=== PATIENT | male | born 1980 | race Asian ===

== ENCOUNTER 2018-11-28 12:26 | Emergency (ER) | payer OTHER ==
[~2018-11-28] VITALS: Ht 167.6 cm; Wt 64.4 kg
[2018-11-28 12:33] VITALS: BP 165/95
--- NOTE | 2018-11-28 13:02 | NUR ---
12 LEAD EKG DONE, DR. MAXWELL CHECKED . PT BACK TO LOBBY WITH STABLE CONDITION.
--- NOTE | 2018-11-28 13:28 | NUR ---
38M C/O LEFT SIDE CHEST PAIN AND SOB FOR 1 MONTH. PT STATES HE BIT DOWN ON SOMETHING HARD MORE THAN A MONTH AGO, DENIES INJURY TO TEETH OR DENTAL SURGERY. AFTER THIS, RIGHT EAR DISCOMFORT ("FEELS LIKE SOMETHING IS IN MY EAR") AND JAW DISCOMFORT STARTED. SOON THEREAFTER CP START. IT COMES AND GOES. LENGTH OF EACH EPISODE VARIES. CURRENT CP HAS BEEN GOING ON FOR 5 HOURS. RATED 4/10. STATES SOB WITH CP. LEFT FOREARM AND FINGERS NUMBNESS, NOT RADIATING FROM CHEST. NO N/V/D/FEVER, DIAPHORESIS. HX: APPENDECTOMY
[2018-11-28] MEDS ORDERED: ASPIRIN 81 MG TAB.CHEW PO ONE (13:35)
[2018-11-28] MEDS ORDERED: NACL 0.9% 1,000 ML IV ONE (13:35)
--- NOTE | 2018-11-28 13:49 | NUR ---
RADIOLOGY AT BEDSIDE
[2018-11-28 14:17] LABS: BASOPHILS % (AUTO) 0.3 % (0.0-2.0); EOSINOPHILS # (AUTO) 0.1 K/uL (0-0.4); EOSINOPHILS % (AUTO) 1.1 % (0.0-4.0); HEMATOCRIT 48.5 % (36-52); HEMOGLOBIN 16.4 g/dL (12.0-18.0); LYMPHOCYTES # (AUTO) 2.1 K/uL (2.0-11.5); LYMPHOCYTES % (AUTO) 30.5 % (20.5-51.1); MEAN CORPUSCULAR HEMOGLOBIN 34 pg (27-31); MEAN CORPUSCULAR HGB CONC 34 g/dL (33-37); MEAN CORPUSCULAR VOLUME 100.1 fL (80-94); MONOCYTES # (AUTO) 0.6 K/uL (0.8-1.0); MONOCYTES % (AUTO) 8.4 % (1.7-9.3); NEUTROPHILS # (AUTO) 4.1 K/uL (1.8-7.7); NEUTROPHILS % (AUTO) 59.7 % (42.2-75.2); PLATELET COUNT (AUTO) 250 K/uL (140-450); RED BLOOD CELL COUNT(AUTO) 4.85 MIL/uL (4.20-6.10); RED CELL DISTRIBUTION WIDTH 13.1 % (11.6-13.7); WHITE BLOOD COUNT (AUTO) 6.9 K/uL (4.8-10.8)
[2018-11-28] MEDS ORDERED: KETOROLAC 30 MG/ML VIAL IVP ONE (14:30)
[2018-11-28 14:52] LABS: PROTHROMBIN TIME 10.1 secs (10.8-13.4)
[2018-11-28 15:03] LABS: CARBON DIOXIDE 27.8 mmol/L (21-32); POTASSIUM 3.8 mmol/L (3.5-5.1)
[2018-11-28 15:04] LABS: ALBUMIN 3.6 g/dL (3.4-5.0); CREATININE 0.7 mg/dL (0.7-1.3); TOTAL BILIRUBIN 0.8 mg/dL (0.0-1.0)
--- NOTE | 2018-11-28 15:30 | NUR ---
DR MUNGUIA AT BEDSIDE
[2018-11-28 16:35] VITALS: BP 145/90
--- NOTE | 2018-11-28 16:37 | NUR ---
Patient discharged with v/s stable. Written and verbal after care instructions given and explained. Patient alert, oriented and verbalized understanding of instructions. Ambulatory with steady gait. All questions addressed prior to discharge. ID band removed. Patient advised to follow up with PMD. Rx of IBU given. Patient educated on indication of medication including possible reaction and side effects. Opportunity to ask questions provided and answered.
== END 2018-11-28 16:37 | disposition home or self-care (01) ==
LOC: MED 12:26
DX: R07.89 Other chest pain (principal); R05 Cough; R06.02 Shortness of breath; F17.210 Nicotine dependence, cigarettes, uncomplicated; Z71.6 Tobacco abuse counseling
CPT/HCPCS: 36415; 71045; 80053; 84484; 85025; 85610; 85730; 96374; 99284; J1885; J7030